=== PATIENT | female | born 1995 | race Caucasian/White ===

== ENCOUNTER 2024-09-25 17:23 | Emergency (ER) | payer OTHER, SELFPAY ==
[2024-09-25 17:31] VITALS: BP 131/87
[2024-09-25 18:36] LABS: COVID-19 Antigen Negative (Negative)
--- NOTE | 2024-09-25 19:15 | ED.GENMED ---
History of Present Illness
General
Chief Complaint: Cold/Flu/URI Symptoms
Source: patient
Exam Limitations: none
Time Seen by Provider: 09/25/24 18:48
History of Present Illness
History of Present Illness:
This is a 29 year old female that comes in with c/o SOB and cough. States that this started 3 days ago. Today she had body chills, States that it was hard to walk and she felt dizzy. States that she is very fatigued and she feels that there is
rattling in her chest. State that she was told to go to the ER. States that she has felt SOB, head a headache and about 45 min ago the dizziness started. Denies any fever, shaking chills, chest pain, abd pain, nausea, vomiting, diarrhea, urinary
burning.
Past History
Past History
ED Past Medical History: None; Negative Asthma, HTN, Hypercholesterolemia or NIDDM
ED Past Surgical History: (X 2)
Social History
Tobacco: Non-smoker
Alcohol: None
Personal:
Living: with family
Review of Systems
Review of Systems
All Other Systems: ROS reviewed and negative except as documented in HPI and ROS
Constitutional: Reports no symptoms; Denies fever or chills
EENT: Reports no symptoms
Respiratory: Reports cough and trouble breathing
Cardiac: Reports no symptoms; Denies chest pain
ABD/GI: Reports no symptoms; Denies abdominal pain, nausea, vomiting or diarrhea
: Reports no symptoms; Denies dysuria, frequency or urgency
Musculoskeletal: Reports no symptoms
Skin: Reports no symptoms
Neurological: Reports no symptoms
Psychiatric: Reports no symptoms
Phy Exam
General Physical Exam
General Presentation: no apparent distress
General age: appears stated age
General Skin: warm and dry
General Habitus: normal
General Mental: alert
General Hydration: appears well hydrated
ENT Exam
ENT Exam: TM's normal, pharynx normal and neck supple
Eye Exam
Eye Exam: EOMI
Cardiovascular Exam
Cardiovascular Exam: no edema, normal peripheral pulses and tachycardia
Pulmonary Exam
Pulmonary Exam: no respiratory distress, chest non tender and other (Course breath sounds half up on the right and left base. Occasional Exp wheeze noted. `Dry cough noted)
Gastrointestinal Exam
Gastrointestinal Exam: normal bowel sounds, non tender, soft, no organomegaly, no pulsatile mass and non distended
Musculoskeletal Exam
Musculoskeletal Exam: full ROM and no edema
Skin Exam
Skin Exam: normal color, warm/dry, no rash and no petechia
Psychiatric Exam
Psychiatric Exam: normal mood/affect
Course
Orders/Labs/Results
Orders:
Orders
09/25/24 17:39
COVID-19 Antigen Urgent
Source: Nasal Swab
Influenza A+B Rapid Molecular Urgent
[facility] Source: Nasal Swab
Specimen Description:
09/25/24 19:14
Test Result ONCE
CR Chest - 2 Views Urgent
Comment:
Reason For Exam: Fever, cough, SOB
09/25/24 19:21
Electrocardiogram (*1) Urgent
Reason for Study: Shortness of Breath
EKG- Treatment ONCE
09/25/24 20:50
Azithromycin [Zithromax] 500 mg PO NOW STA
09/25/24 20:54
Complete Blood Count/With Diff Urgent
Comprehensive Metabolic Panel Urgent
HCG, Serum Qualitative Screen Urgent
0.9% Sodium Chloride 500 ml [Nss] 1,000 ml IV ONCE
Abnormal Lab Results
09/25/24
20:54
WBC 11.6 H 10^3/uL
(4.8-10.8)
MCH 32.2 H pg
(27.0-31.0)
Absolute Neuts (auto) 9.1 H 10^3/uL
(1.4-6.5)
Absolute Monos (auto) 0.7 H 10^3/uL
(0.1-0.6)
Neutrophils % 77.8 H %
(42.2-75.2)
Lymphocytes % 15.8 L %
(20.5-51.1)
Carbon Dioxide 21 L mmol/L
(22-30)
Glucose 102 H mg/dl
(70-99)
09/25/24 20:54
09/25/24 20:54
WBC slightly elevated. Glucose nonfasting. Carbon dioxide slightly low. HCG negative. COVID negative.
Vital Signs
Initial and Last Documented VS:
Initial Vital Signs
Temp Pulse Resp BP Pulse Ox
99.1 F 123 16 131/87 99
09/25/24 17:31 09/25/24 17:31 09/25/24 17:31 09/25/24 17:31 09/25/24 17:31
Last Documented Vital Signs
Temp Pulse Resp BP Pulse Ox
99.1 F 123 16 131/87 98
09/25/24 17:31 09/25/24 17:31 09/25/24 17:31 09/25/24 17:31 09/25/24 20:41
MDM/Problems Addressed
Differential Diagnosis Includes:
PNA, Viral syndrome
MDM/Problems Addressed:
This is a 29 year old female that comes in with c/o SOB for the past 3 days. State that she is very fatigued and has cough. State that she felt cold today and started to feel dizzy about 45 min ago. State sthat she had a hard time walking.
Will check labs. chest x-ray, give IV fluids test for COVID and Influenza.
Back into see patient. Explained that there is a little Pneumonia bilateral bases. patient was given Oral antibiotics here and will sent prescription to her pharmacy. patient to increase her water intake. Return with any concerns.
Chronic conditions affecting care:
NA
Acute Exacerbation and/or Progression of Chronic Illness:
NA
*Radiology
Radiology exam reviewed: preliminary read by ED provider (Chest -Bilateral lower lobe Pneumonia. )
*Pulse Oximetry
Patient hypoxic: no
*EKG
Interpreted by ED Provider?: NA
Rate: EKG- N/A
*Economics Analyst Interpretation
Rate: Economics Analyst- N/A
*Critical Care Note
Total Time (30-74mins, 75-104mins- exclusive of procedures): Not Applicable
ED Attending Note
-
Portions of this chart may have been created with voice recognition software.� Occasional wrong word or��sound alike� substitutions may have occurred due to the inherent limitations of voice recognition software.
Discharge Plan
Departure
Patient Disposition: Home (Routine Discharge)
Date of Disposition: 09/25/24
Time of Disposition: 22:23
Patient with high blood pressure during this ER visit?: Yes
Condition: Good
Covid-19: Negative COVID-19
Discharge Problem:
Lower lobe pneumonia
Instructions: Pneumonia in adults - Discharge instructions, BLOOD PRESSURE
Prescriptions:
New
azithromycin [Zithromax] 250 mg tablet
250 mg PO DAILY 4 Days Qty: 4 0RF
cefpodoxime 200 mg tablet
200 mg PO BID Qty: 20 0RF
No Action
vit-iron fum-folic ac 1 EACH tablet
1 ea PO DAILY
acetaminophen 325 mg Tablet
650 mg PO Q4HPRN PRN (Reason: mild pain) Qty: 0 0RF
ibuprofen 600 mg Tablet
600 mg PO Q4HPRN PRN (Reason: cramps) Qty: 0 0RF
Referrals:
Eugenia Montiel, [Family Provider] - Call in 1-3 days for appt
Activity Restrictions/Additional Instructions:
As discussed, your white blood cell count is slightly elevated. This goes along with infection. Your chest x-ray shows that there is a little lower lobe Pneumonia. Please increase your water intake to 8-8oz glasses daily. You have had 2 antibiotics
sent to your pharmacy. Please take as directed. Follow up with the family doctor for recheck. Tylenol or Ibuprofen for any fever. IF YOU HAVE ANY OTHER CONCERNS PLEASE RETURN TO THE EMERGENCY ROOM.
Interventions
Interventions:
*Risk Screen - Suicide Last Done: 09/25/24 17:31
*General Assessment Last Done: 09/25/24 20:41
*Neglect/Abuse Screening Last Done: 09/25/24 17:31
ED- Fall Risk Assessment Last Done: 09/25/24 20:41
*ED COVID-19 Vaccine History Last Done: 09/25/24 20:41
ED- Pulmonary Assessment Last Done: 09/25/24 20:41
Discharge Date and Time
Print Language: [id number]
[2024-09-25] MEDS: NSS 1000 IV (20:55)
[2024-09-25 21:02] LABS: % Basophils 0.2 % (0-2); % Eosinophils 0.2 % (0-6); % Immature Granulocytes 0.3 % (0-0.5); % Lymphocytes 15.8 % (20.5-51.1); % Monocytes 5.7 % (1.7-9.3); % Neutrophils 77.8 % (42.2-75.2); Absolute Lymphocytes 1.8 10^3/uL (1.2-3.4); Absolute Monocytes 0.7 10^3/uL (0.1-0.6); Absolute Neutrophils 9.1 10^3/uL (1.4-6.5); Hematocrit 38.8 % (37.0-47.0); Hemoglobin 13.8 g/dL (12.0-16.0); Mean Corp Hgb Conc. 35.6 g/dL (33.0-37.0); Mean Corpuscular Hgb 32.2 pg (27.0-31.0); Mean Corpuscular Volume 90.4 fL (81.0-99.0); Mean Platelet Volume 9.6 fL (7.4-10.4); Nucleated Red Blood Cells % 0 %; Platelet Count 193 10^3/uL (130-400); Red Blood Cell Count 4.29 10^6/uL (4.20-5.40); White Blood Cell Count 11.6 10^3/uL (4.8-10.8)
[2024-09-25 21:14] LABS: HCG, Serum Qualitative Screen Negative
[2024-09-25] MEDS: ZITHROMAX 500 MG PO (21:18)
[2024-09-25 21:19] LABS: ALT (SGPT) 17 U/L (0-35); AST (SGOT) 27 U/L (14-36); Albumin 4.3 g/dl (3.5-5.0); Alkaline Phosphatase 68 U/L (38-126); Blood Urea Nitrogen 9 mg/dl (7-17); Calcium 8.8 mg/dl (8.4-10.2); Carbon Dioxide 21 mmol/L (22-30); Chloride 102 mmol/L (98-107); Glucose 102 mg/dl (70-99); Potassium 3.7 mmol/L (3.5-5.1); Sodium 135 mmol/L (135-145); Total Bilirubin 0.5 mg/dl (0.2-1.3); Total Protein 7.2 g/dl (6.3-8.2); eGFR > 60.00
[2024-09-25 21:21] VITALS: BMI 38.1
[2024-09-25 22:36] VITALS: BP 128/80
== END 2024-09-25 22:39 | disposition home or self-care (01) ==
LOC: EMR 17:23
PROVIDERS: Clinical Nurse Specialist Family Health; Emergency Medicine; EMERGENCY PHYSICIAN Emergency Medicine; FAMILY PHYSICIAN Student in an Organized Health Care Education/Training Program
DX: J18.9 Pneumonia, unspecified organism (principal)
CPT/HCPCS: 99283; 96360; 96361; 71046; 80053; 84703; 85025; 87502; 87811